=== PATIENT | female | born 2005 | race Caucasian/White ===

== ENCOUNTER 2023-05-06 20:18 | Emergency (ER) | payer BC ==
[2023-05-06 20:57] LABS: BASOPHILS PERCENT AUTO 0.2 % (0.0-1.0); EOSINOPHILS PERCENT AUTO 0.3 % (1.0-3.0); HEMATOCRIT 42.5 % (37.0-47.0); HEMOGLOBIN 14.9 g/dL (12.0-16.0); MEAN CORPUSCULAR HEMOGLOBIN 30.9 pg (27.0-34.0); MEAN CORPUSCULAR HGB CONC 35.1 g/dL (33.0-35.0); MEAN CORPUSCULAR VOLUME 88.2 fL (80-100); MONOCYTES PERCENT AUTO 9.5 % (2-8); PLATELET COUNT,PLT 292 10^3/uL (150-450); RED BLOOD CELL COUNT 4.82 10^6/uL (4.2-5.4); WHITE BLOOD CELL COUNT,WBC 8.8 10^3/uL (5.0-10.0)
[2023-05-06 21:16] LABS: INR 0.9 (0.9-1.2); PROTHROMBIN TIME 9.5 SEC (9.0-12.0); PTT,PARTIAL THROMBOPLSTIN TIME 26.1 SEC (22.0-34.0)
== END 2023-05-06 21:40 | disposition home or self-care (01) ==
LOC: DL.ED 20:18
DX: R04.0 Epistaxis (principal); R03.0 Elevated blood-pressure reading, without diagnosis of hypertension
CPT/HCPCS: 36415; 85025; 85610; 85730; 99283; 99284